=== PATIENT | female | born 1990 | race African-American/Black ===

== ENCOUNTER 2016-10-18 11:38 | Emergency (ER) | payer OTHER ==
[2016-10-18 11:44] VITALS: PULSE 83; BMI 30.9
--- NOTE | 2016-10-18 13:33 | PDOC ---
History of Present Illness - History of Present Illness Initial Comments: 10/18/16 17:28 Patient is a 26 year old female with significant medical hx s/p liposuction () who is presenting to the ED with complaint of fluid accumulation surrounding surgical drainage site. The patient reports that she routinely has the fluid drained from her back by a massage therapist, but has not gone within the past week. Her drainage site had closed up. She now has fluid build up that is more painful especially when she is laying on it. The patient also complains of ch around her abdomen secondary to the surgery but that is not painful and has been improving/healing. The patient received her surgery in the [place]. She is currently on antibiotics for possible infection by her PMD, but it seems to be improving. Denies fevers, chills, discharge, redness, n/v. Surgical Hx: liposuction x 2, Allergies: amoxicillin <Gemma Love - Last Filed: 10/18/16 17:28> <Fidel Gomez - Last Filed: 10/18/16 18:56> - General Chief Complaint: Edema Stated Complaint: POST-OP, BACK COMPLICATIONS Time Seen by Provider: 10/18/16 12:25 Past History <Gemma Love - Last Filed: 10/18/16 17:28> - Past Medical History Anemia: No Asthma: Yes Cancer: No Cardiac Disorders: No CVA: No COPD: No CHF: No Dementia: No Diabetes: No GI Disorders: No Disorders: No HTN: No Hypercholesterolemia: No Liver Disease: No Suicide Attempt (Hx): No Seizures: No Thyroid Disease: No - Surgical History Abdominal Surgery: Yes Cardiac Surgery: No Lung Surgery: No Neurologic Surgery: No Orthopedic Surgery: No - Psycho/Social/Smoking Cessation Hx Anxiety: No Suicidal Ideation: No Smoking Status: No Smoking History: Never smoked Have you smoked in the past 12 months: No Number of Cigarettes Smoked Daily: 0 Hx Alcohol Use: Yes (OCCASIONALLY) Drug/Substance Use Hx: No Substance Use Type: None <Fidel Gomez - Last Filed: 10/18/16 18:56> - Past Medical History Allergies/Adverse Reactions: Allergies Allergy/AdvReac Type Severity Reaction Status Date / Time amoxicillin Allergy Itching Verified 10/18/16 11:44 Home Medications: Ambulatory Orders Iron 325 mg PO BID 12/16/15 l-Norgest/E.estradiol-E.estrad [Seasonique 0.15-0.03-0.01 Tab] 1 each PO DAILY 12/16/15 Multivitamins [Multivit ([facility] Formulary)] 1 tab PO DAILY 04/28/16 Oxycodone HCl/Acetaminophen [Percocet 5-325 mg Tablet] 1 - 2 tab PO Q4H #20 tablet MDD 10 04/28/16 Review of Systems - Review of Systems Comments:: 10/18/16 17:29 CONSTITUTIONAL: No reported: Fever, Chills, Diaphoresis, Generalized Weakness, Malaise, Loss of Appetite HEENT: No reported: Rhinorrhea, Nasal Congestion, Throat Pain, Throat Swelling, Difficulty Swallowing, Mouth Swelling, Ear Pain, Eye Pain, Visual Changes CARDIOVASCULAR: No reported: Chest Pain, Syncope, Palpitations, Irregular Heart Rate, Lightheadedness, Peripheral Edema RESPIRATORY: No reported: Cough, Shortness of Breath, SOB with Exertion, Orthopnea, Wheezing , Stridor, Hemoptysis GASTROINTESTINAL: No reported: Abdominal pain, Abdominal Distension, Nausea, Vomiting, Diarrhea, Constipation, Melena, Hematochezia GENITOURINARY: No reported: Dysuria, Frequency, Urgency, Hesitancy, Flank Pain, Genital Pain MUSCULOSKELETAL: Reported: Back Pain from Fluid accumulation No reported: Myalgia, Arthralgia, Joint Swelling, Neck Pain SKIN: Reported: Ch/wound No reported: Rash, Itching, Pallor HEMEATOLOGIC/IMMUNOLOGIC: No reported: Easy Bleeding, Easy Bruising, Lymphadenopathy, Frequent infections ENDOCRINE: No reported: Unexplained Weight Gain, Unexplained Weight Loss, Heat Intolerance , Cold Intolerance NEUROLOGIC: No reported: Headache, Focal Weakness, Paresthesias, Vertigo, Lightheadedness, Unsteady Gait, Seizure, Mental Status Changes, Incontinence PSYCHIATRIC: No reported: Anxiety, Depression <Gemma Love - Last Filed: 10/18/16 17:28> *Physical Exam - Vital Signs Last Vital Signs Temp Pulse Resp BP Pulse Ox 98 F 83 16 116/68 100 10/18/16 16:45 10/18/16 16:45 10/18/16 16:45 10/18/16 16:45 10/18/16 16:45 - Physical Exam Comments: 10/18/16 17:29 GENERAL: The patient is awake, alert, and fully oriented, Nontoxic - in no acute distress. HEAD: Normocephalic, atraumatic. EYES: extraocular movements intact, sclera anicteric, conjunctiva clear. ENT: Normal voice, Moist mucous membranes. NECK: Normal range of motion, supple LUNGS: Breath sounds equal, clear to auscultation bilaterally. No wheezes, no rhonchi, no rales. HEART: Regular rate and rhythm, normal S1 and S2 without murmur, rub or gallop. ABDOMEN: several large ch/wounds on the left abdomen/right abdomen with eschar in center, no erythema, induration, warmth, no active discharge, abdomen has irregular massess palpable in the mid abdomen, posterior back with nontendern fluctuant nonerythemadous, non indurated mass in posterior back bilaterally and mid back. EXTREMITIES: Normal range of motion, no edema. NEUROLOGICAL: No facial assymetry, Normal speech, moving all 4extremities spontaneously and symmetrically. PSYCH: Normal mood, normal affect. SKIN: Warm, Dry, normal turgor. <Ivan,Gemma - Last Filed: 10/18/16 17:28> - Vital Signs Last Vital Signs Temp Pulse Resp BP Pulse Ox 98.1 F 83 16 120/56 98 10/18/16 11:41 10/18/16 11:41 10/18/16 11:41 10/18/16 11:41 10/18/16 11:41 <Patricia,Fidel - Last Filed: 10/18/16 18:56> ED Treatment Course - LABORATORY CBC & Chemistry Diagram: 10/18/16 15:13 10/18/16 15:13 - ADDITIONAL ORDERS Additional order review: Laboratory Results 10/18/16 15:13 Sodium 142 Potassium 3.9 Chloride 108 H Carbon Dioxide 24 Anion Gap 10 BUN 6 L Creatinine 0.7 Creat Clearance w eGFR > 60 Random Glucose 100 Calcium 8.6 Total Bilirubin 0.4 D AST 20 D ALT 20 D Alkaline Phosphatase 60 D Total Protein 7.8 Albumin 3.1 L 10/18/16 15:13 RBC 4.24 MCV 85.9 MCHC 33.3 RDW 13.6 MPV 9.3 Neutrophils % 59.2 Lymphocytes % 29.1 D Monocytes % 6.0 Eosinophils % 4.8 H D Basophils % 0.9 - RADIOLOGY Radiograph Interpretation: 10/18/16 17:30 Soft Tissue Chest and Back US Impression: Large collection with septation versus 2 adjacent collections with a total measurement of 14.4 x 9.4 x 3 cm likely compatible with the clinical history of a seroma. Correlate clinically for further evaluation. Case discussed with Dr. Gomez, emergency room caring attending physician. Reported By: Erik Moran MD <Gemma Love - Last Filed: 10/18/16 17:28> - LABORATORY CBC & Chemistry Diagram: 10/18/16 15:13 10/18/16 15:13 <Fidel Gomez - Last Filed: 10/18/16 18:56> Medical Decision Making - Medical Decision Making 10/18/16 14:23 26y F hx of asthma presents with back pain - pt notes she has had an increasing mass her lower back - no erythema/induration to suggest acute infection, not tense to palpation. she has a wound b/l abdomen that seems to be heeling well without signs of infection. will obtain blood work and US to evaluate the mass pt will likely need to fu with a surgeon as an outpatient for further evaluation to optimize cosmetic outcome. case dw surgery (Patricia) and plastics (dr. lindsay) - agres that the pt will need outpatient follow up. 10/18/16 15:55 10/18/16 16:15 pts l;abs reviewed no leukocytosis noted the patients US reveals a large fluid collection, c/w seroma. will d/c the pt to fu with plastics as an outpatient for further management and optimization. no acute intervention needed in the emergency department at this time. I discussed the physical exam findings, ancillary test results and final diagnoses with the patient. I answered all of the patient's questions. The patient was satisfied with the care received and felt comfortable with the discharge plan and treatment plan. The patient will call their primary care physician within 24 hours to arrange follow-up and will return to the Emergency Department with any new, persistent or worsening symptoms. <Fidel Gomez - Last Filed: 10/18/16 18:56> *DC/Admit/Observation/Transfer - Attestations Scribe Attestion: 10/18/16 17:32 Documentation prepared by Gemma Love, acting as diagnostic medical sonographer for Fidel Gomez MD. <Gemma Love - Last Filed: 10/18/16 17:28> - Discharge Dispostion Admit: No <Fidel Gomez - Last Filed: 10/18/16 18:56> Diagnosis at time of Disposition: Seroma, postoperative Qualifiers: Surgical complication system/body Area: subcutaneous tissue Procedure type: non -dermatologic Qualified Code(s): L76.34 - Postprocedural seroma of skin and subcutaneous tissue following other procedure - Discharge Dispostion Disposition: HOME Condition at time of disposition: Improved - Referrals Referrals: Mónica Jj [Primary Care Provider] - Simon Rordigues MD [Staff Physician] - - Patient Instructions Additional Instructions: Return to the emergency department immediately with ANY new, persistent or worsening symptoms. Please follow up with a plastic surgeon for further evaluation of your swelling , and to ensure your healing is appropriate. There are no signs of infection at this time. You MUST call and follow up with your doctor tomorrow for further evaluation of your symptoms. Results were discussed with you. Please make sure your doctor reviews the results of your emergency evaluation. Print Language: WELSH
[2016-10-18 15:22] LABS: EOSINOPHIL 4.8 % (0-4.5)
[2016-10-18 15:33] LABS: BASOPHIL 0.9 % (0-2.0); MCH 28.6 pg (25.7-33.7); MCHC 33.3 g/dl (32.0-36.0); MEAN CELL VOLUME 85.9 fl (80-96); MEAN PLT VOLUME 9.3 fl (7.5-11.1); NEUTROPHILS 59.2 % (42.8-82.8); PLATELET COUNT 360 K/MM3 (134-434); RDW 13.6 % (11.6-15.6); WHITE BLOOD COUNT 6.8 K/mm3 (4.0-10.0)
[2016-10-18 15:48] LABS: ALBUMIN 3.1 g/dl (3.4-5.0); ANION GAP 10 (8-16); BILIRUBIN,TOTAL 0.4 mg/dL (0.2-1.0); CALCIUM 8.6 mg/dL (8.5-10.1); CO2 24 mmol/L (21-32); COCKROFT - GAULT 154.2155; CREATININE 0.7 mg/dL (0.55-1.02); GLUCOSE,RANDOM 100 mg/dL (74-106); SGOT/AST 20 U/L (15-37); SGPT/ALT 20 U/L (12-78); TOT PROT 7.8 g/dl (6.4-8.2)
[2016-10-18 15:49] LABS: ALK PHOS 60 U/L (45-117)
[2016-10-18 16:47] VITALS: BP 116/68; TEMP 98
== END 2016-10-18 16:46 | disposition home or self-care (01) ==
LOC: JER 11:38
DX: L76.34 Postprocedural seroma of skin and subcutaneous tissue following other procedure (principal)
CPT/HCPCS: 36415; 76604; 80053; 85025; 99283-25

== ENCOUNTER 2017-06-13 12:12 | Emergency (ER) | payer OTHER ==
[2017-06-13 12:16] VITALS: BP 117/68; PULSE 100; TEMP 98.7; BMI 29.2
--- NOTE | 2017-06-13 14:22 | PDOC ---
History of Present Illness - General Chief Complaint: Cold Symptoms Stated Complaint: COLD Time Seen by Provider: 06/13/17 14:06 History Source: Patient Exam Limitations: No Limitations - History of Present Illness Initial Comments: 06/13/17 23:11 mY chief complaint: Cough, for a few days, sore throat, History of present illness: Patient is a 26-year-old female with history of asthma with no previous hospitalizations due to her asthma here today complaining of having a runny nose with sneezing last week with slight sore throat and cough with yellowish greenish sputum today and yesterday. Patient reports that she was unable to speak for 2 days due to losing her voice. Patient denies any difficulty swallowing or breathing or any shortness of breath or wheezing. Patient has been afebrile. Patient has had no recent travel or any sick contacts. Timing/Duration: intermittent Severity: mild Associated Symptoms: reports: cough, other (nasal congestion, cough) Past History - Past Medical History Allergies/Adverse Reactions: Allergies Allergy/AdvReac Type Severity Reaction Status Date / Time amoxicillin Allergy Itching Verified 06/13/17 12:13 Home Medications: Ambulatory Orders l-Norgest/E.estradiol-E.estrad [Seasonique 0.15-0.03-0.01 Tab] 1 each PO DAILY 12/16/15 Guaifenesin Dm [Mucinex Dm -] 1 tab PO Q12H PRN #10 tab.er.12h 06/13/17 Anemia: No Asthma: Yes Cancer: No Cardiac Disorders: No CVA: No COPD: No CHF: No Dementia: No Diabetes: No GI Disorders: No Disorders: No HTN: No Hypercholesterolemia: No Liver Disease: No Seizures: No Thyroid Disease: No - Surgical History Abdominal Surgery: Yes Cardiac Surgery: No Cholecystectomy: Yes Lung Surgery: No Neurologic Surgery: No Orthopedic Surgery: No - Suicide/Smoking/Psychosocial Hx Smoking Status: No Smoking History: Never smoked Have you smoked in the past 12 months: No Number of Cigarettes Smoked Daily: 0 Information on smoking cessation initiated: No Hx Alcohol Use: Yes (OCCASIONALLY) Drug/Substance Use Hx: No Substance Use Type: None Review of Systems - Review of Systems Able to Perform ROS?: Yes Constitutional: No: Symptoms Reported HEENTM: Yes: Nose Congestion, Throat Pain Respiratory: Yes: Productive cough (yellowish, green ) Cardiac (ROS): No: Symptoms Reported ABD/GI: No: Symptoms Reported : No: Symptoms Reported Musculoskeletal: No: Symptoms Reported Integumentary: No: Symptoms Reported Neurological: No: Symptoms reported *Physical Exam - Vital Signs Last Vital Signs Temp Pulse Resp BP Pulse Ox 98.7 F 100 H 18 117/68 100 06/13/17 12:14 17 12:14 06/13/17 12:14 06/13/17 12:14 06/13/17 12:14 - Physical Exam General Appearance: Yes: Appropriately Dressed HEENT: positive: TMs Normal, Pharyngeal Erythema, Nasal Congestion. negative: Tonsillar Exudate, Tonsillar Erythema Neck: negative: Lymphadenopathy (R), Lymphadenopathy (L) Respiratory/Chest: positive: Lungs Clear, Normal Breath Sounds. negative: Chest Tender, Respiratory Distress Cardiovascular: positive: Regular Rhythm, Regular Rate, S1, S2 Integumentary: positive: Normal Color Neurologic: positive: Alert, Normal Response, Responsive Medical Decision Making - Medical Decision Making 06/13/17 23:12 Patient is a 26-year-old female with history of asthma with no previous hospitalizations due to her asthma here today complaining of having a runny nose with sneezing last week with slight sore throat and cough with yellowish greenish sputum today and yesterday. Patient reports that she was unable to speak for 2 days due to losing her voice. Patient denies any difficulty swallowing or breathing or any shortness of breath or wheezing. Patient has been afebrile. Patient has had no recent travel or any sick contacts. 06/13/17 23:13 PHARYNGITIS R/O STREP COUGH PLAN: THROAT C & S NEGATIVE MUCINEX DM 2 TABS Q 12 HRS PRN COUGH FOR 5 DAYS *DC/Admit/Observation/Transfer Diagnosis at time of Disposition: Cough, Nasal congestion, Pharyngitis - Discharge Dispostion Disposition: HOME Condition at time of disposition: Stable - Prescriptions Prescriptions: Guaifenesin Dm [Mucinex Dm -] 1 tab PO Q12H PRN #10 tab.er.12h PRN Reason: Cough - Referrals Referrals: Mónica Jj [Primary Care Provider] - - Patient Instructions Additional Instructions: Follow-up with your primary care provider within the next few days Return to emergency room if symptoms worsen or new symptoms develop Drink a lot of fluids and rest Patient voiced understanding of discharge instructions and all questions were answered thank you for choosing [facility] emergency room via medical needs today - Post Discharge Activity Forms/Work/School Notes: Back to Work
== END 2017-06-13 15:00 | disposition home or self-care (01) ==
LOC: JERFT 12:12
DX: R09.81 Nasal congestion (principal); J02.9 Acute pharyngitis, unspecified; R05 Cough
CPT/HCPCS: 87070; 87430; 99281-25

== ENCOUNTER 2018-06-07 22:02 | Emergency (ER) | payer OTHER ==
[2018-06-07 22:07] VITALS: BP 118/75; PULSE 86; TEMP 98.2; BMI 30.9
--- NOTE | 2018-06-07 22:40 | PDOC ---
History of Present Illness - General Chief Complaint: Cold Symptoms Stated Complaint: COLD SYMPTOMS Time Seen by Provider: 06/07/18 22:18 History Source: Patient Exam Limitations: No Limitations - History of Present Illness Initial Comments: 06/07/18 22:35 HISTORY OF PRESENT ILLNESS: 27-year-old woman without significant medical history presents emergency department for evaluation of 1 week of upper respiratory symptoms. Patient reports having nasal congestion, postnasal drip, cough which worsens in the morning and body aches. Patient is unsure she's had any fevers but is been taking [id number] DayQuil and sinus and cold medication with minimal relief of symptoms. Patient reports multiple sick contacts including her live-in boyfriend and her son. No recent travel. PAST MEDICAL HISTORY: Asthma SURGICAL HISTORY: Denies ALLERGIES: PCN REVIEW OF SYSTEMS General/Constitutional: Denies fever or chills. Denies weakness, weight change. HEENT: Denies change in vision. Denies ear pain or discharge. +sore throat. + muffled hearing Cardiovascular: Denies chest pain or shortness of breath. Respiratory: Dry productive cough. Denies wheezing, or hemoptysis. Gastrointestinal: Denies nausea, vomiting, diarrhea or constipation. Denies rectal bleeding. Genitourinary: Denies dysuria, frequency, or change in urination. Musculoskeletal: +myalgias. Denies neck or back pain. Skin and breasts: Denies rash or easy bruising. Neurologic: Denies headache, vertigo, loss of consciousness, or loss of sensation. Psychiatric: Denies depression or anxiety. Endocrine: Denies increased thirst. Denies abnormal weight change. Hematologic/Lymphatic: Denies anemia, easy bleeding, or history of blood clots. Allergic/Immunologic: Denies hives or skin allergy. Denies latex allergy. PHYSICAL EXAM General Appearance: Well-appearing, appropriately dressed. No apparent distress , no intoxication. HEENT: EOMI, PERRLA, normal ENT inspection, normal voice, TMs normal. No conjunctival pallor. No photophobia, scleral icterus. OP with erythema of tonsillar pilars. No exudate or lesions present. Neck: Supple. Trachea midline. No tenderness, rigidity, carotid bruit, stridor , lymphadenopathy, or thyromegaly. Respiratory/Chest: Lungs CTAB. No shortness of breath, chest tenderness, respiratory distress, accessory muscle use. No crackles, rales, rhonchi, stridor , wheezing, dullness Cardiovascular: RRR. S1, S2. No JVD, murmur, bradycardia, tachycardia. Vascular Pulses: Dorsalis-Pedis (R): 2+, Dorsalis-Pedis (L): 2+ Gastrointestinal/Abdominal: Normal bowel sounds. Abdomen soft, non-distended. No tenderness or rebound tenderness. No organomegaly, pulsatile mass, guarding, hernia, hepatomegaly, splenomegaly. Lymphatic: No adenopathy, tenderness. Musculoskeletal/Extremities: Normal inspection. FROM of all extremities, normal capillary refill. Pelvis Stable. No CVA tenderness. No tenderness to extremities, pedal edema, swelling, erythema or deformity. Integumentary: Appropriate color, dry, warm. No cyanosis, erythema, jaundice or rash Neurologic: leasing professional II-XII intact. Fully oriented, alert. Appropriate mood/affect. Motor strength 5/5. No appreciable EOM palsy, facial droop or sensory deficit. Past History - Past Medical History Allergies/Adverse Reactions: Allergies Allergy/AdvReac Type Severity Reaction Status Date / Time amoxicillin Allergy Itching Verified 06/13/17 12:13 Home Medications: Ambulatory Orders NK [No Known Home Medication] 06/07/18 Anemia: No Asthma: Yes Cancer: No Cardiac Disorders: No CVA: No COPD: No CHF: No Dementia: No Diabetes: No GI Disorders: No Disorders: No HTN: No Hypercholesterolemia: No Liver Disease: No Seizures: No Thyroid Disease: No - Surgical History Abdominal Surgery: Yes Cardiac Surgery: No Cholecystectomy: Yes Lung Surgery: No Neurologic Surgery: No Orthopedic Surgery: No - Suicide/Smoking/Psychosocial Hx Smoking Status: No Smoking History: Never smoked Have you smoked in the past 12 months: No Number of Cigarettes Smoked Daily: 0 Hx Alcohol Use: Yes (OCCASIONALLY) Drug/Substance Use Hx: No Substance Use Type: None *Physical Exam - Vital Signs Last Vital Signs Temp Pulse Resp BP Pulse Ox 98.2 F 86 18 118/75 98 06/07/18 22:05 06/07/18 22:05 06/07/18 22:05 06/07/18 22:05 06/07/18 22:05 Moderate Sedation - Procedure Monitoring Vital Signs: Procedure Monitoring Vital Signs Temperature 98.2 F 06/07/18 22:05 Pulse Rate 86 06/07/18 22:05 Respiratory Rate 18 06/07/18 22:05 Blood Pressure 118/75 06/07/18 22:05 O2 Sat by Pulse Oximetry (%) 98 06/07/18 22:05 Medical Decision Making - Medical Decision Making 06/07/18 22:33 A/P: 27-year-old woman with 7 days of upper respiratory symptoms TMs within normal limits bilaterally Erythema noted of the tonsillar pillars. No tonsillar swelling present there is no exudate or lesions noted. No cervical lymphadenopathy noted. Lungs clear to auscultation bilaterally RRR. No murmur, rub or gallop noted. Symptoms consistent with an upper respiratory infection. I will discharge the patient home to continue symptomatic treatment. Patient is agreement with the current plan. *DC/Admit/Observation/Transfer Diagnosis at time of Disposition: URI (upper respiratory infection) Qualifiers: URI type: unspecified viral URI Qualified Code(s): J06.9 - Acute upper respiratory infection, unspecified - Discharge Dispostion Disposition: HOME Condition at time of disposition: Stable Decision to Admit order: No - Referrals - Patient Instructions Printed Discharge Instructions: DI for Viral Upper Respiratory Infection -- Adult Additional Instructions: Rest, drink lots of fluids: Teas, water, soups, Pedialyte Saltwater gargles Steamy showers/seem to face break up mucus Avoid contact with others until fevers and cough resolved Lots of handwashing and good hygiene Continue [id number] medications for symptomatic relief Tylenol or Motrin for fever and pain Followup with private physician in one to 2 days as needed Return to emergency department for worsened symptoms, fevers, dehydration - Post Discharge Activity Forms/Work/School Notes: Back to School
== END 2018-06-07 22:36 | disposition home or self-care (01) ==
LOC: JERFT 22:02
DX: J06.9 Acute upper respiratory infection, unspecified (principal); B97.89 Other viral agents as the cause of diseases classified elsewhere
CPT/HCPCS: 99281-25

== ENCOUNTER 2022-11-23 18:23 | Emergency (ER) | payer OTHER ==
[2022-11-23 18:41] VITALS: BP 118/76; PULSE 69; RESP 18; TEMP 99.3; BMI 30.9
== END 2022-11-23 20:35 | disposition home or self-care (01) ==
LOC: JERFT 18:23 → JER 18:23 → JERFT 20:35
DX: M54.2 Cervicalgia (principal); M54.6 Pain in thoracic spine; M62.838 Other muscle spasm; V48.0XXA Car driver injured in noncollision transport accident in nontraffic accident, initial encounter
CPT/HCPCS: 72050-TC-FY; 99283-25